=== PATIENT | female | born 1970 | race Caucasian/White ===

== ENCOUNTER 2017-10-05 12:47 | Inpatient (IN) | payer MEDICARE, OTHER, MEDICAID ==
[~2017-10-05] VITALS: Ht 182.9 cm; Wt 70.0 kg
[~2017-10-05 12:47] MED LIST: ACET325T14 PO; ALPR2TAB2 PO; AMBR10TA3 PO; AMBR5TAB3 PO; AMIT10TA PO; AMOX1TAB64 PO; ASCO500C2 PO; BIOT25005 PO; CARB1TAB22 PO; CEFT2FRO2 IVPB; CELE100C PO; CEPH-368 PO; DEMEDEX PO; DIGO125T PO; DIPH25CA61 PO; DOCU250C9 PO; DOXY100T10 PO; EPLE50TA3 PO; FERR324T5 PO; FERR324T8 PO; FERR325T18 PO; FURO20TA3 PO; HYDR4TAB48 PO; IBUP100T7 PO; LEVE100020 PO; LEVO100T5 PO; LISI5TAB7 PO; LORATIDINE PO; METH4TAB6 PO; METO5TAB5 PO; OMEP-110 PO; OMEP40CA6 PO; ONDA4TAB7 PO; POTA20TA6 PO; POTA25TA4 PO; PRAM1TAB PO; PRED5TAB19 PO; RANI150T4 PO; RANI300T PO; RIVA10TA PO; ROPI0.2537 PO; ROPI2TAB3 PO; SELE1600 PO; SILD20TA PO; SIMV10TA3 PO; SPIR100T2 PO; TORS20TA2 PO; TREP10VI; VANC1PLA IVPB
[2017-10-05] MEDS ORDERED: FENTANYL PF 250 MCG/5ML ONE (13:15)
[2017-10-05] MEDS ORDERED: MIDAZOLAM 1 MG/ML, 2ML ONE (13:15)
[2017-10-05] MEDS ORDERED: LACTATED RINGERS 1,000 ML IV SCH (14:15)
[2017-10-05] MEDS ORDERED: BUPIVACAINE/PF 0.5% ONE (14:22)
[2017-10-05] MEDS ORDERED: THROMBIN 5,000 UNIT VIAL TP ONE (14:23)
[2017-10-05] MEDS ORDERED: EPINEPHRINE 1 MG/ML, 1ML ONE (14:23)
[2017-10-05] MEDS ORDERED: BACITRACIN 50,000 UNIT ONE (14:23)
[2017-10-05] MEDS ORDERED: CEFAZOLIN 1,000 MG ONE (14:35)
[2017-10-05] MEDS ORDERED: BUPIVACAINE/PF-EPI 0.5% 1:200K INFIL ONE (15:09)
[2017-10-05] MEDS ORDERED: ACETAMINOPHEN 325 MG TABLET PO PRN (15:30)
[2017-10-05] MEDS ORDERED: LORazepam 2 MG/ML, 1ML IVPush PRN (15:30)
[2017-10-05] MEDS ORDERED: ONDANSETRON 2MG/ML, 2ML IVPush PRN ×2 (15:30→16:00)
[2017-10-05] MEDS ORDERED: FENTANYL PF 100 MCG/2ML IV PRN (15:30)
[2017-10-05] MEDS ORDERED: PROMETHAZINE 25 MG/ML, 1ML IV PRN (15:30)
[2017-10-05] MEDS ORDERED: OXYcodone 5 MG/5 ML ORAL.SOL UDC PO PRN (15:30)
[2017-10-05] MEDS ORDERED: MIDAZOLAM 1 MG/ML, 2ML IV PRN (15:30)
[2017-10-05] MEDS ORDERED: VASOPRESSIN 20 UNIT/ML, 1ML ONE (15:39)
[2017-10-05] MEDS ORDERED: PROPOFOL 10 MG/ML, 20ML ONE (15:39)
[2017-10-05] MEDS ORDERED: ONDANSETRON 2MG/ML, 2ML ONE (15:40)
[2017-10-05] MEDS ORDERED: ROCURONIUM 10 MG/ML,10ML ONE (15:40)
[2017-10-05] MEDS ORDERED: PHENYLEPHRINE 10 MG/ML ONE (15:40)
[2017-10-05] MEDS ORDERED: DEXAMETHASONE 4 MG/ML, 1ML ONE ×3 (15:40)
[2017-10-05] MEDS ORDERED: METOLAZONE 5 MG TABLET PO PRN (16:00)
[2017-10-05] MEDS ORDERED: PROMETHAZINE 25 MG/ML, 1ML IM PRN (16:00)
[2017-10-05] MEDS ORDERED: HYDROmorphone 1 MG/ML, 1ML IVPush PRN (16:00)
[2017-10-05] MEDS ORDERED: LABETALOL 5MG/ML, 20ML IVPush PRN (16:00)
[2017-10-05] MEDS ORDERED: MAGNESIUM HYDROXIDE 8%, 30ML UDC PO PRN (16:00)
[2017-10-05] MEDS ORDERED: PHARMACY MAY ADJ FOR RENAL FX MC PRN (16:00)
[2017-10-05] MEDS ORDERED: BISACODYL 10 MG SUPP PR PRN (16:00)
[2017-10-05] MEDS: ROPINIROLE 1MG TABLET PO SCH ×2 (16:00→18:35)
[2017-10-05] MEDS ORDERED: SENNA/DOCUSATE TABLET PO PRN (16:00)
[2017-10-05] MEDS: ENOXAPARIN 30 MG/0.3 ML SQ SCH (16:00)
[2017-10-05] MEDS ORDERED: HYDROmorphone 2 MG/ML, 1ML ONE ×2 (16:06→16:49)
[2017-10-05] MEDS ORDERED: ACETAMINOPHEN 325 MG TABLET ONE (16:06)
[2017-10-05] MEDS ORDERED: OXYcodone 5 MG/5 ML ORAL.SOL UDC ONE (16:07)
[2017-10-05] MEDS: HYDROmorphone 1 MG/ML, 1ML IV PRN ×8 (16:12→17:08)
[2017-10-05] MEDS: POTASSIUM CHLORIDE 20 MEQ TAB.ER.PRT PO SCH ×2 (17:57→21:16)
[2017-10-05] MEDS: NS + 20MEQ KCL 1,000 ML IV SCH (17:58)
[2017-10-05 18:37] VITALS: BP 91/53
[2017-10-05 20:48] VITALS: BP 91/48
[2017-10-05] MEDS ORDERED: SILDENAFIL 20 MG TABLET PO SCH (21:00)
[2017-10-05] MEDS ORDERED: SIMVASTATIN 10 MG TABLET PO SCH (21:00)
[2017-10-05] MEDS: REVATIO PO SCH (21:00)
[2017-10-05] MEDS ORDERED: DIGOXIN 0.125 MG TABLET PO SCH (21:00)
[2017-10-05] MEDS: EPLERENONE 50 MG HOMEMEDPO SCH (21:00)
[2017-10-05] MEDS ORDERED: REQUIP 2 MG PO SCH (21:00)
[2017-10-05] MEDS ORDERED: HYDROmorphone 2MG TABLET ONE (21:08)
[2017-10-05] MEDS: DEXAMETHASONE 4 MG/ML, 1ML IVPush SCH (21:15)
[2017-10-05] MEDS: SELEXIPAG 1600 MCG HOMEMEDPO SCH (21:15)
[2017-10-05] MEDS: HYDROmorphone 4MG TABLET PO SCH (21:16)
[2017-10-05] MEDS: SODIUM CHLORIDE FLUSH 10ML SYR IVF SCH (21:16)
[2017-10-05] MEDS: LEVETIRACETAM 500 MG TABLET PO SCH (21:16)
[2017-10-05] MEDS: OMEPRAZOLE 20 MG CAPSULE.DR PO SCH (21:16)
[2017-10-05] MEDS: FERROUS GLUCONATE 324 MG TABLET PO SCH (21:16)
[2017-10-06 00:19] VITALS: BP 94/48
[2017-10-06] MEDS: METHOCARBAMOL 750 MG TABLET PO PRN ×2 (02:39→11:11)
[2017-10-06] MEDS: DEXAMETHASONE 4 MG/ML, 1ML IVPush SCH ×2 (02:39→07:43)
[2017-10-06 04:14] VITALS: BP 93/54
[2017-10-06 04:27] LABS: HEMATOCRIT 35.2 % (34.6-47.8); HEMOGLOBIN 12.2 g/dL (11.7-16.4); WHITE BLOOD COUNT 6.8 x10^3/uL (3.4-10)
[2017-10-06 04:39] LABS: BLOOD UREA NITROGEN 21 mg/dL (7-18)
[2017-10-06] MEDS: POTASSIUM CHLORIDE 20 MEQ TAB.ER.PRT PO SCH ×2 (06:03→10:49)
[2017-10-06] MEDS: NS + 20MEQ KCL 1,000 ML IV SCH (06:03)
[2017-10-06] MEDS: ENOXAPARIN 30 MG/0.3 ML SQ SCH (06:03)
[2017-10-06 07:15] VITALS: BP 93/54
[2017-10-06] MEDS: SODIUM CHLORIDE FLUSH 10ML SYR IVF SCH (09:00)
[2017-10-06] MEDS ORDERED: LEVOTHYROXINE 100 MCG TABLET PO SCH (09:00)
[2017-10-06] MEDS ORDERED: TORSEMIDE 20 MG TABLET PO SCH (09:00)
[2017-10-06] MEDS ORDERED: TEMPLATE NON-FORMULARY MED. (Ambrisentan (Letairis**) 10 MG) HOMEMEDPO SCH (09:00)
[2017-10-06] MEDS ORDERED: HYDROmorphone 2MG TABLET ONE (09:16)
[2017-10-06] MEDS: HYDROmorphone 4MG TABLET PO SCH (09:20)
[2017-10-06] MEDS: OMEPRAZOLE 20 MG CAPSULE.DR PO SCH (09:21)
[2017-10-06] MEDS: FERROUS GLUCONATE 324 MG TABLET PO SCH (09:21)
[2017-10-06] MEDS: LEVETIRACETAM 500 MG TABLET PO SCH (09:21)
[2017-10-06] MEDS: SELEXIPAG 1600 MCG HOMEMEDPO SCH (10:46)
[2017-10-06] MEDS: EPLERENONE 50 MG HOMEMEDPO SCH (10:48)
[2017-10-06] MEDS: REVATIO PO SCH (10:48)
[2017-10-06] MEDS ORDERED: METH4TAB2 PO (11:21)
[2017-10-06] MEDS ORDERED: METH750T87 PO (11:21)
== END 2017-10-06 12:08 | disposition home or self-care (01) | DRG 472 ==
LOC: 4NOR 12:47
PROVIDERS: ADMIT Neurological Surgery; ATTEND Neurological Surgery
PROC: 0RB30ZZ Excision of Cervical Vertebral Disc, Open Approach (ICD-10-PCS; 2017-10-05)
PROC: 4A11X4G Monitoring of Peripheral Nervous Electrical Activity, Intraoperative, External Approach (ICD-10-PCS; 2017-10-05)
PROC: XRG New Technology, Joints, Fusion (ICD-10-PCS; principal; 2017-10-05 14:30)
DX: M50.122 Cervical disc disorder at C5-C6 level with radiculopathy (principal); I13.0 Hypertensive heart and chronic kidney disease with heart failure and stage 1 through stage 4 chronic kidney disease, or unspecified chronic kidney disease; I27.20 Pulmonary hypertension, unspecified; I50.9 Heart failure, unspecified; N18.3 Chronic kidney disease, stage 3 (moderate); K21.9 Gastro-esophageal reflux disease without esophagitis; E03.9 Hypothyroidism, unspecified; M19.90 Unspecified osteoarthritis, unspecified site; G43.909 Migraine, unspecified, not intractable, without status migrainosus; F41.9 Anxiety disorder, unspecified; G40.909 Epilepsy, unspecified, not intractable, without status epilepticus; M48.02 Spinal stenosis, cervical region; M25.78 Osteophyte, vertebrae; Z86.711 Personal history of pulmonary embolism; Z86.718 Personal history of other venous thrombosis and embolism; Z88.5 Allergy status to narcotic agent; Z88.2 Allergy status to sulfonamides; Z88.8 Allergy status to other drugs, medicaments and biological substances; Z86.73 Personal history of transient ischemic attack (TIA), and cerebral infarction without residual deficits; Z82.61 Family history of arthritis; Z82.49 Family history of ischemic heart disease and other diseases of the circulatory system; M40.292 Other kyphosis, cervical region
CPT/HCPCS: 36415; 72040; 80048; 85025; C1713; J0171; J0690; J1100; J1170; J1650; J2250; J2405; J2704; J3010; J3480; J3490; J2370

== ENCOUNTER → 2018-08-07 | Outpatient (CLI) | payer MEDICARE, OTHER, MEDICAID ==
[~2018-08-07] MED LIST changes: +METH4TAB2 PO; +METH750T87 PO; -ROPI0.2537 PO; +ROPI0.254 PO; -SPIR100T2 PO; +SPIR100T4 PO
== END | disposition home or self-care (01) ==
LOC: CFH 14:44
PROVIDERS: ATTEND Internal Medicine Cardiovascular Disease
DX: Z01.810 Encounter for preprocedural cardiovascular examination (principal); I08.1 Rheumatic disorders of both mitral and tricuspid valves; E78.5 Hyperlipidemia, unspecified; I27.0 Primary pulmonary hypertension; I25.2 Old myocardial infarction
CPT/HCPCS: 93306

== ENCOUNTER → 2018-08-11 | Outpatient (CLI) | payer MEDICARE, OTHER, MEDICAID ==
[~2018-08-11] MED LIST changes: +CHOL2000 PO; +VERAPAMIL 2.5 MG/ML, 2ML ONE
[2018-08-11 13:23] LABS: BASOPHILS # (AUTO) 0.03 x10^3/uL (0-0.1); BASOPHILS % (AUTO) 1 % (0-1); EOSINOPHILS # (AUTO) 0.26 x10^3/uL (0-0.4); EOSINOPHILS % (AUTO) 4 % (1-7); LYMPHOCYTES # (AUTO) 1.34 x10^3/uL (1-3.4); LYMPHOCYTES % (AUTO) 23 % (22-44); MD NO; MEAN CORPUSCULAR HEMOGLOBIN 30.2 pg (27.0-34.8); MEAN CORPUSCULAR HGB CONC 32.9 g/dL (32.4-35.8); MEAN CORPUSCULAR VOLUME 91.7 fL (80-100); MEAN PLATELET VOLUME 9.9 fL (7.4-10.4); MONOCYTES # (AUTO) 0.54 x10^3/uL (0.2-0.8); MONOCYTES % (AUTO) 9 % (2-9); NEUTROPHILS # (AUTO) 3.61 x10^3/uL (1.8-6.8); NEUTROPHILS % (AUTO) 63 % (42-75); PLATELET COUNT 177 x10^3/uL (130-400); RED BLOOD COUNT 4.66 x10^6/uL (3.82-5.3); RED CELL DISTRIBUTION WIDTH 13.6 % (9.6-15.2)
[2018-08-11 13:31] LABS: INTERNATIONAL NORMALIZED RATIO 1.03 (0.93-1.1); PROTHROMBIN TIME 10.6 Seconds (9.6-11.5)
[2018-08-11 13:35] LABS: ALANINE AMINOTRANSFERASE 19 U/L (12-78); ALBUMIN 3.9 g/dL (3.4-5.0); ANION GAP 6 mmol/L (5-15); CALCIUM 8.2 mg/dL (8.5-10.1); CHLORIDE 105 mmol/L (98-107); CREATININE 0.96 mg/dL (0.55-1.02)
[2018-08-11 13:38] LABS: ALKALINE PHOSPHATASE 65 U/L (45-117); BILIRUBIN,TOTAL 0.6 mg/dL (0.2-1.0); TOTAL PROTEIN 7.1 g/dL (6.4-8.2)
== END | disposition home or self-care (01) ==
LOC: STAR 12:09
PROVIDERS: ATTEND Specialist
DX: Z01.818 Encounter for other preprocedural examination (principal); I21.9 Acute myocardial infarction, unspecified
CPT/HCPCS: 36415; 80053; 85025; 85610; 85730; 93005

== ENCOUNTER 2018-08-12 10:44 | Day surgery (SDC) | payer MEDICARE, OTHER, MEDICAID ==
[~2018-08-12] VITALS: Ht 182.9 cm; Wt 64.0 kg
[~2018-08-12 10:44] MED LIST changes: -CHOL2000 PO; -VERAPAMIL 2.5 MG/ML, 2ML ONE
[2018-08-12 11:11] VITALS: BP 103/62
[2018-08-12] MEDS ORDERED: DIPHENHYDRAMINE 50 MG/ML, 1ML IVPush ONE (11:30)
[2018-08-12] MEDS ORDERED: CHOL2000 PO (11:36)
[2018-08-12] MEDS ORDERED: HEPARIN 1,000 UNITS/ML, 10ML ONE (14:21)
[2018-08-12] MEDS ORDERED: MIDAZOLAM 1 MG/ML, 5ML ONE (14:21)
[2018-08-12] MEDS ORDERED: FENTANYL PF 100 MCG/2ML ONE (14:21)
== END 2018-08-12 16:45 | disposition home or self-care (01) ==
LOC: CACL 10:44
PROVIDERS: ATTEND Internal Medicine Cardiovascular Disease
DX: I27.21 Secondary pulmonary arterial hypertension (principal); E03.9 Hypothyroidism, unspecified; K21.9 Gastro-esophageal reflux disease without esophagitis; F31.9 Bipolar disorder, unspecified; E78.5 Hyperlipidemia, unspecified; Z79.899 Other long term (current) drug therapy; Z88.6 Allergy status to analgesic agent; Z88.1 Allergy status to other antibiotic agents; Z88.5 Allergy status to narcotic agent; Z88.8 Allergy status to other drugs, medicaments and biological substances
CPT/HCPCS: 93451; 99156; 99157; C1769; C1894; J1200; J2250; J3010; J1644

== ENCOUNTER 2018-08-18 08:17 | Inpatient (IN) | payer MEDICARE, OTHER, MEDICAID ==
[~2018-08-18] VITALS: Ht 182.9 cm; Wt 70.4 kg
[~2018-08-18 08:17] MED LIST changes: +CHOL2000 PO
[2018-08-18] MEDS ORDERED: LACTATED RINGERS 1,000 ML IV SCH ×2 (09:41→16:30)
[2018-08-18 10:05] VITALS: BP 85/57
[2018-08-18] MEDS ORDERED: BUPIVACAINE/PF-EPI 0.25% 1:200K ONE (12:20)
[2018-08-18] MEDS ORDERED: MIDAZOLAM 1 MG/ML, 2ML ONE (12:30)
[2018-08-18] MEDS ORDERED: FENTANYL PF 250 MCG/5ML ONE (12:30)
[2018-08-18] MEDS ORDERED: ROCURONIUM 10 MG/ML,10ML ONE (14:00)
[2018-08-18] MEDS ORDERED: MILRINONE 1 MG/ML, 10ML IV ONE (14:00)
[2018-08-18] MEDS ORDERED: SUCCINYLCHOLINE 20 MG/ML, 10ML ONE (14:00)
[2018-08-18] MEDS ORDERED: EPINEPHRINE 1 MG/ML, 1ML ONE ×2 (14:29)
[2018-08-18] MEDS ORDERED: PROPOFOL 10 MG/ML, 20ML ONE (14:29)
[2018-08-18] MEDS ORDERED: ONDANSETRON 2MG/ML, 2ML ONE (14:29)
[2018-08-18] MEDS ORDERED: DEXAMETHASONE 4 MG/ML, 1ML ONE (14:30)
[2018-08-18] MEDS ORDERED: CEFAZOLIN 1,000 MG ONE (14:30)
[2018-08-18] MEDS: KETOROLAC 30 MG/1 ML IV PRN ×2 (16:27→22:47)
[2018-08-18] MEDS ORDERED: HYDROmorphone 2MG TABLET ONE ×2 (18:25→22:16)
[2018-08-18] MEDS: HYDROmorphone 4MG TABLET PO SCH (18:28)
[2018-08-18] MEDS: OMEPRAZOLE 20 MG CAPSULE.DR PO SCH (18:29)
[2018-08-18] MEDS: DOCUSATE 100 MG CAPSULE PO SCH (20:57)
[2018-08-18] MEDS: DIGOXIN 0.125 MG TABLET PO SCH (20:57)
[2018-08-18] MEDS: SIMVASTATIN 10 MG TABLET PO SCH (20:57)
[2018-08-18] MEDS: SILDENAFIL 20 MG TABLET PO SCH (20:57)
[2018-08-18] MEDS: FERROUS SULFATE 325 MG TABLET PO SCH (20:57)
[2018-08-18] MEDS: FAMOTIDINE 40 MG TABLET PO SCH (20:57)
[2018-08-18] MEDS: LEVETIRACETAM 500 MG TABLET PO SCH (20:58)
[2018-08-18] MEDS ORDERED: ROPINIROLE 1MG TABLET PO SCH (21:00)
[2018-08-18] MEDS: EPLERENONE 50 MG PO SCH (21:00)
[2018-08-18] MEDS ORDERED: POTASSIUM CHLORIDE 20 MEQ TAB.ER.PRT PO SCH (21:00)
[2018-08-18] MEDS: SELEXIPAG 1600 MCG PO SCH (21:00)
[2018-08-18] MEDS ORDERED: EPINEPHRINE 2 MG in SODIUM CHLORIDE 0.9% 248 ML IV PRN (21:30)
[2018-08-18] MEDS ORDERED: ROPINIROLE 1MG TABLET ONE (21:47)
[2018-08-18] MEDS: ONDANSETRON 2MG/ML, 2ML IV PRN (22:00)
[2018-08-18] MEDS: ROPINIROLE 1MG TABLET PO SCH (22:34)
[2018-08-18] MEDS: POTASSIUM CHLORIDE 20 MEQ TAB.ER.PRT PO SCH (22:39)
[2018-08-18] MEDS: HYDROmorphone 4MG TABLET PO PRN (22:40)
[2018-08-19] MEDS: LACTATED RINGERS 1,000 ML IV SCH ×3 (00:56→20:56)
[2018-08-19 01:11] LABS: CLOSTRIDIUM DIFFICILE ANTIGEN NEGATIVE; CLOSTRIDIUM DIFFICILE TOXIN NEGATIVE (Negative)
[2018-08-19] MEDS ORDERED: HYDROmorphone 2MG TABLET ONE ×3 (04:32→20:47)
[2018-08-19] MEDS: HYDROmorphone 4MG TABLET PO PRN (04:34)
[2018-08-19 04:53] LABS: BASOPHILS # (AUTO) 0.04 x10^3/uL (0-0.1); BASOPHILS % (AUTO) 1 % (0-1); EOSINOPHILS # (AUTO) 0.08 x10^3/uL (0-0.4); EOSINOPHILS % (AUTO) 1 % (1-7); LYMPHOCYTES # (AUTO) 1.31 x10^3/uL (1-3.4); LYMPHOCYTES % (AUTO) 18 % (22-44); MD NO; MEAN CORPUSCULAR HEMOGLOBIN 30.9 pg (27.0-34.8); MEAN CORPUSCULAR HGB CONC 33.6 g/dL (32.4-35.8); MEAN PLATELET VOLUME 10.2 fL (7.4-10.4); MONOCYTES # (AUTO) 0.72 x10^3/uL (0.2-0.8); MONOCYTES % (AUTO) 10 % (2-9); NEUTROPHILS # (AUTO) 5.14 x10^3/uL (1.8-6.8); NEUTROPHILS % (AUTO) 71 % (42-75); PLATELET COUNT 143 x10^3/uL (130-400); RED BLOOD COUNT 3.62 x10^6/uL (3.82-5.3); RED CELL DISTRIBUTION WIDTH 14.1 % (9.6-15.2)
[2018-08-19 05:06] LABS: ANION GAP 7 mmol/L (5-15); CALCIUM 7.9 mg/dL (8.5-10.1); CHLORIDE 107 mmol/L (98-107); CREATININE 0.87 mg/dL (0.55-1.02)
[2018-08-19] MEDS: LEVOTHYROXINE 100 MCG TABLET PO SCH (06:00)
[2018-08-19] MEDS ORDERED: POTASSIUM CHLORIDE 20 MEQ TAB.ER.PRT PO SCH (06:00)
[2018-08-19] MEDS: POTASSIUM CHLORIDE 20 MEQ TAB.ER.PRT PO SCH ×4 (06:41→20:54)
[2018-08-19] MEDS: OMEPRAZOLE 20 MG CAPSULE.DR PO SCH ×2 (08:00→16:43)
[2018-08-19] MEDS: ASCORBIC ACID 500 MG TABLET PO SCH (09:00)
[2018-08-19] MEDS: FAMOTIDINE 40 MG TABLET PO SCH ×2 (09:00→20:52)
[2018-08-19] MEDS: TORSEMIDE 20 MG TABLET PO SCH (09:00)
[2018-08-19] MEDS: SELEXIPAG 1600 MCG PO SCH ×2 (09:00→20:55)
[2018-08-19] MEDS: SILDENAFIL 20 MG TABLET PO SCH ×3 (09:00→20:55)
[2018-08-19] MEDS: DOCUSATE 100 MG CAPSULE PO SCH ×2 (09:00→20:54)
[2018-08-19] MEDS: AMBRISENTAN 10 MG PO SCH (09:00)
[2018-08-19] MEDS: EPLERENONE 50 MG PO SCH ×2 (09:00→20:56)
[2018-08-19] MEDS: FERROUS SULFATE 325 MG TABLET PO SCH ×2 (09:00→20:53)
[2018-08-19] MEDS: LEVETIRACETAM 500 MG TABLET PO SCH ×2 (09:00→20:53)
[2018-08-19] MEDS: HYDROmorphone 4MG TABLET PO SCH ×2 (11:29→20:59)
[2018-08-19] MEDS ORDERED: DIPHENHYDRAMINE 25 MG CAPSULE PO ONE (16:30)
[2018-08-19 17:30] VITALS: BP 86/51
[2018-08-19 20:16] VITALS: BP 88/42
[2018-08-19] MEDS: DIGOXIN 0.125 MG TABLET PO SCH (20:53)
[2018-08-19] MEDS: ROPINIROLE 1MG TABLET PO SCH (20:54)
[2018-08-19] MEDS: SIMVASTATIN 10 MG TABLET PO SCH (20:54)
[2018-08-19] MEDS ORDERED: ROPINIROLE 1MG TABLET PO SCH (21:00)
[2018-08-20 05:08] LABS: BASOPHILS # (AUTO) 0.03 x10^3/uL (0-0.1); BASOPHILS % (AUTO) 1 % (0-1); EOSINOPHILS # (AUTO) 0.21 x10^3/uL (0-0.4); EOSINOPHILS % (AUTO) 5 % (1-7); LYMPHOCYTES # (AUTO) 1.53 x10^3/uL (1-3.4); LYMPHOCYTES % (AUTO) 33 % (22-44); MD NO; MEAN CORPUSCULAR HEMOGLOBIN 30.8 pg (27.0-34.8); MEAN CORPUSCULAR HGB CONC 33.4 g/dL (32.4-35.8); MEAN CORPUSCULAR VOLUME 92.1 fL (80-100); MEAN PLATELET VOLUME 9.4 fL (7.4-10.4); MONOCYTES # (AUTO) 0.42 x10^3/uL (0.2-0.8); MONOCYTES % (AUTO) 9 % (2-9); NEUTROPHILS # (AUTO) 2.43 x10^3/uL (1.8-6.8); NEUTROPHILS % (AUTO) 53 % (42-75); PLATELET COUNT 134 x10^3/uL (130-400); RED BLOOD COUNT 3.61 x10^6/uL (3.82-5.3)
[2018-08-20 05:12] LABS: ANION GAP 4 mmol/L (5-15); CALCIUM 7.5 mg/dL (8.5-10.1); CHLORIDE 108 mmol/L (98-107); CREATININE 0.85 mg/dL (0.55-1.02)
[2018-08-20] MEDS: LACTATED RINGERS 1,000 ML IV SCH (06:03)
[2018-08-20] MEDS: POTASSIUM CHLORIDE 20 MEQ TAB.ER.PRT PO SCH ×2 (06:03→09:40)
[2018-08-20] MEDS: LEVOTHYROXINE 100 MCG TABLET PO SCH (06:03)
[2018-08-20] MEDS ORDERED: HYDROmorphone 2MG TABLET ONE (07:30)
[2018-08-20] MEDS: SELEXIPAG 1600 MCG PO SCH (07:46)
[2018-08-20] MEDS: AMBRISENTAN 10 MG PO SCH (07:46)
[2018-08-20] MEDS: TORSEMIDE 20 MG TABLET PO SCH (07:48)
[2018-08-20] MEDS: LEVETIRACETAM 500 MG TABLET PO SCH (07:48)
[2018-08-20] MEDS: FAMOTIDINE 40 MG TABLET PO SCH (07:48)
[2018-08-20] MEDS: DOCUSATE 100 MG CAPSULE PO SCH (07:49)
[2018-08-20] MEDS: HYDROmorphone 4MG TABLET PO PRN (07:49)
[2018-08-20] MEDS: OMEPRAZOLE 20 MG CAPSULE.DR PO SCH (07:49)
[2018-08-20] MEDS: ASCORBIC ACID 500 MG TABLET PO SCH (07:50)
[2018-08-20] MEDS: SILDENAFIL 20 MG TABLET PO SCH (07:50)
[2018-08-20] MEDS: FERROUS SULFATE 325 MG TABLET PO SCH (07:50)
[2018-08-20] MEDS: HYDROmorphone 4MG TABLET PO SCH (07:51)
[2018-08-20] MEDS: EPLERENONE 50 MG PO SCH (07:52)
[2018-08-20 08:18] VITALS: BP 88/50
[2018-08-20] MEDS: ONDANSETRON 2MG/ML, 2ML IV PRN (09:39)
== END 2018-08-20 14:10 | disposition home or self-care (01) | DRG 742 ==
LOC: OUT 08:17 → ICU 15:31 → OUT 16:00 → 3NW 08-19 17:08 → DCLOUNGE 08-20 14:00
PROVIDERS: ADMIT Specialist; ATTEND Specialist
PROC: 0UT24ZZ Resection of Bilateral Ovaries, Percutaneous Endoscopic Approach (ICD-10-PCS; 2018-08-18)
PROC: 0UT74ZZ Resection of Bilateral Fallopian Tubes, Percutaneous Endoscopic Approach (ICD-10-PCS; 2018-08-18)
PROC: 8E0W4CZ Robotic Assisted Procedure of Trunk Region, Percutaneous Endoscopic Approach (ICD-10-PCS; 2018-08-18)
PROC: 0UT94ZZ Resection of Uterus, Percutaneous Endoscopic Approach (ICD-10-PCS; principal; 2018-08-18 10:30)
DX: N93.8 Other specified abnormal uterine and vaginal bleeding (principal); I13.0 Hypertensive heart and chronic kidney disease with heart failure and stage 1 through stage 4 chronic kidney disease, or unspecified chronic kidney disease; F33.9 Major depressive disorder, recurrent, unspecified; I42.9 Cardiomyopathy, unspecified; D25.9 Leiomyoma of uterus, unspecified; E06.3 Autoimmune thyroiditis; G25.81 Restless legs syndrome; E03.9 Hypothyroidism, unspecified; G89.29 Other chronic pain; I50.9 Heart failure, unspecified; K21.9 Gastro-esophageal reflux disease without esophagitis; I25.10 Atherosclerotic heart disease of native coronary artery without angina pectoris; K64.9 Unspecified hemorrhoids; F41.9 Anxiety disorder, unspecified; F43.10 Post-traumatic stress disorder, unspecified; G40.909 Epilepsy, unspecified, not intractable, without status epilepticus; X58.XXXA Exposure to other specified factors, initial encounter; M48.02 Spinal stenosis, cervical region; G43.909 Migraine, unspecified, not intractable, without status migrainosus; N18.3 Chronic kidney disease, stage 3 (moderate); Z79.891 Long term (current) use of opiate analgesic; Z86.73 Personal history of transient ischemic attack (TIA), and cerebral infarction without residual deficits; Z88.2 Allergy status to sulfonamides; Z88.5 Allergy status to narcotic agent; Z88.1 Allergy status to other antibiotic agents; Z88.8 Allergy status to other drugs, medicaments and biological substances; Y93.89 Activity, other specified; Y92.89 Other specified places as the place of occurrence of the external cause; Y99.8 Other external cause status; Z80.3 Family history of malignant neoplasm of breast
CPT/HCPCS: 36415; 80048; 85025; 86850; 86900; 86923; 87081; 87324; 88307; G0378; J0171; J0690; J1100; J1885; J2250; J2260; J2405; J2704; J3010; J0330; J7120; Q0163

== ENCOUNTER 2019-11-26 13:01 | Outpatient (CLI) | payer MEDICARE, MEDICAID ==
[~2019-11-26 13:01] MED LIST changes: -DIGO125T PO; +DIGO125T85 PO; -DOXY100T10 PO; +DOXY100T23 PO; +OMEP40CA42 PO; -OMEP40CA6 PO; -RIVA10TA PO; +RIVA10TA2 PO; +SIMV10TA18 PO; -SIMV10TA3 PO; -VANC1PLA IVPB; +VANC1PLA18 IVPB
== END 2019-11-26 23:59 | disposition home or self-care (01) ==
LOC: CARD 13:01
PROVIDERS: ATTEND Internal Medicine Cardiovascular Disease
DX: I27.0 Primary pulmonary hypertension (principal); Z94.2 Lung transplant status
CPT/HCPCS: 94010; 94726; 94729

== ENCOUNTER 2020-07-13 07:11 | Outpatient (CLI) | payer MEDICARE | END 2020-07-13 23:59 | disposition home or self-care (01) | LOC: CVU 07:11 → EDSTATUS 08:00 → CVU 23:59 | PROVIDERS: ATTEND Internal Medicine Cardiovascular Disease | DX: I08.8 Other rheumatic multiple valve diseases (principal); R06.02 Shortness of breath; I10 Essential (primary) hypertension | CPT/HCPCS: 93306; 94010; 94726; 94729 ==

== ENCOUNTER 2020-11-04 10:02 | Outpatient (CLI) | payer MEDICARE | END 2020-11-04 23:59 | disposition home or self-care (01) | LOC: CFH 10:02 → RAD 23:59 | PROVIDERS: ATTEND Nurse Practitioner | DX: R22.1 Localized swelling, mass and lump, neck (principal); Z79.52 Long term (current) use of systemic steroids | CPT/HCPCS: 76536; 77080 ==

== ENCOUNTER → 2021-01-06 | Outpatient (CLI) | payer MEDICARE | END | disposition home or self-care (01) | LOC: CFH 10:07 | PROVIDERS: ATTEND Internal Medicine Cardiovascular Disease | DX: J98.4 Other disorders of lung (principal); Z94.2 Lung transplant status | CPT/HCPCS: 71250 ==